=== PATIENT | male | born 1995 | race Two or more races ===

== ENCOUNTER 2017-04-29 15:46 | Emergency (ER) | payer SELFPAY ==
--- NOTE | 2017-04-30 10:55 | ER ---
ADMIT: 04/29/2017 RM/LOC: ER [facility] MR#: [id number] [place], [place] [id number] KATY FISHER [address] [place] [address] Emergency Room Report SEX: M AGE: 21 : 1995 DATE: 04/29/2017 CHIEF COMPLAINT: Injury to left thumb. HISTORY OF PRESENT ILLNESS: A 21-year-old, male, presents to the ER for evaluation of the left thumb. He states he was out trimming branches yesterday when he caught his finger with a knife. Tried to repair this with some new skin at home and it continue to bleed. Presents here for evaluation as he has to return to work tonight. He works at [employer] with his hands. Denies any numbness or tingling distally. COURSE IN THE EMERGENCY ROOM: The patient was seen and examined. GENERAL: Afebrile, nontoxic, in no acute distress. EXTREMITIES: He has a superficial laceration on the dorsal aspect of the left thumb, irregular, does not extend to the subcutaneous tissues. It is neurovascularly intact. He has brisk capillary refill. Sensation intact to light touch. He has full flexion and extension. PROCEDURE NOTE: I was able to easily repair this with Dermabond. The wound edges were well everted. Dressing was applied. His tetanus was updated. IMPRESSION: Superficial laceration, left dorsal thumb. DISPOSITION: Discharged home. He is to keep the Dermabond in place for 3-5 days. Allow to fall off on its own. Avoid aggressive washing or submerging in water. Monitor for infection. Follow up as needed. He was provided a note returning him to work today. Discharged home in stable condition. KETAN Treviño / Surinder Angel MD / [facility] JOB #: [id number] CC: Surinder Angel MD, Attending Physician Yordan Saavedra MD, Family Physician
== END 2017-04-29 16:20 | disposition home or self-care (01) ==
LOC: ER 15:46
PROC: 0HQGXZZ Repair Left Hand Skin, External Approach (ICD-10-PCS; principal; 2017-04-29)
DX: S61.012A Laceration without foreign body of left thumb without damage to nail, initial encounter (principal); F17.210 Nicotine dependence, cigarettes, uncomplicated; W26.0XXA Contact with knife, initial encounter; Y92.009 Unspecified place in unspecified non-institutional (private) residence as the place of occurrence of the external cause